=== PATIENT | male | born 1945 | race Two or more races ===

== ENCOUNTER 2019-07-17 11:18 | Outpatient (CLI) | payer OTHER ==
[~2019-07-17 11:18] MED LIST: AMOX1TAB12 PO; AMPICILLIN-SULBA3 GM IV; CAPOTEN100 MG; DOXYCYCLINE HY100 M2 PO; HUMULIN N100 UNIT/2 SUBCUTANEO; HYZAAR 100-12.1 EACH PO; INTESTINEX680 MG PO; METFORMIN HCL500 MG; METRONIDAZOLE500 MG PO; OMEPRAZOLE20 M1 PO; PIPERACIL-TA3.375 GM IV; VANCOMYCIN HCL1 GM IV
== END 2019-07-20 15:17 | disposition home or self-care (01) ==
LOC: RAD 11:18
DX: E10.621 Type 1 diabetes mellitus with foot ulcer (principal); M86.171 Other acute osteomyelitis, right ankle and foot

== ENCOUNTER 2019-09-11 11:46 | Outpatient (CLI) | payer OTHER | END 2019-09-11 11:47 | disposition home or self-care (01) | LOC: RAD 11:46 | DX: M86.171 Other acute osteomyelitis, right ankle and foot (principal); E10.621 Type 1 diabetes mellitus with foot ulcer ==

== ENCOUNTER 2019-09-18 12:24 | Inpatient (IN) | payer OTHER ==
[~2019-09-18] VITALS: Ht 180.3 cm; Wt 93.4 kg
== END 2019-09-27 19:25 | disposition home health service (06) | DRG 256 ==
LOC: ER 12:24 → MEDJ 19:26
PROVIDERS: Specialist; ADMIT Internal Medicine
PROC: 0JBQ0ZZ Excision of Right Foot Subcutaneous Tissue and Fascia, Open Approach (ICD-10-PCS; 2019-09-19)
PROC: BQ3PZZZ Magnetic Resonance Imaging (MRI) of Right Toe(s) (ICD-10-PCS; 2019-09-19)
PROC: 0Y6R0Z3 Detachment at Right 2nd Toe, Low, Open Approach (ICD-10-PCS; 2019-09-21)
PROC: 0Y6P0Z3 Detachment at Right 1st Toe, Low, Open Approach (ICD-10-PCS; principal; 2019-09-21 08:30)
DX: E11.52 Type 2 diabetes mellitus with diabetic peripheral angiopathy with gangrene (principal); I96 Gangrene, not elsewhere classified; L97.414 Non-pressure chronic ulcer of right heel and midfoot with necrosis of bone; M86.171 Other acute osteomyelitis, right ankle and foot; I10 Essential (primary) hypertension; E11.65 Type 2 diabetes mellitus with hyperglycemia; E11.621 Type 2 diabetes mellitus with foot ulcer; B96.89 Other specified bacterial agents as the cause of diseases classified elsewhere; B95.61 Methicillin susceptible Staphylococcus aureus infection as the cause of diseases classified elsewhere; B96.5 Pseudomonas (aeruginosa) (mallei) (pseudomallei) as the cause of diseases classified elsewhere; B96.29 Other Escherichia coli [E. coli] as the cause of diseases classified elsewhere; B95.1 Streptococcus, group B, as the cause of diseases classified elsewhere; Z79.4 Long term (current) use of insulin
CPT/HCPCS: 73725

== ENCOUNTER → 2019-10-23 | Outpatient (CLI) | payer OTHER | END | disposition home or self-care (01) | LOC: WOUND MED 09:00 | DX: E10.621 Type 1 diabetes mellitus with foot ulcer (principal); L97.512 Non-pressure chronic ulcer of other part of right foot with fat layer exposed | CPT/HCPCS: G0463; A4554; A4930; A6216 ==

== ENCOUNTER 2021-08-07 10:14 | Outpatient (CLI) | payer OTHER | END 2021-08-07 10:15 | disposition home or self-care (01) | LOC: RAD 10:14 | PROVIDERS: ATTEND Specialist | DX: M86.8X7 Other osteomyelitis, ankle and foot (principal); L03.115 Cellulitis of right lower limb; E10.65 Type 1 diabetes mellitus with hyperglycemia ==

== ENCOUNTER 2022-01-02 08:49 | Inpatient (IN) | payer OTHER ==
[~2022-01-02] VITALS: Ht 152.4 cm; Wt 102.1 kg
[2022-01-02] MEDS ORDERED: HUMULIN R100 UNIT/1 SUBCUTANEO (09:13)
--- NOTE | 2022-01-02 09:13 | NUR ---
SE RECIBE PACIENTE ALERTA, ORIENTADO X 3 ESFERAS REFIERE TENER INFECCION AE AREA DE AMOUTACION DEL PIES DERECHO. DUNIA REFERIDO DE DR.LOPEZ KESSLER PARA ADMISION. SE ESTIMAN S/V SE UBICA EN AREA DE OBSERVACION.
--- NOTE | 2022-01-02 10:09 | NUR ---
SE LE ORIENTA A PTE SOBRE TRATAMIENTO A SEGUIR, EL REFIERE ENTENDER. SE LE COLECTA MUESTRAS, SE CANALIZA Y SE ADMINISTRA MEDICAMENTO MARCOS ORDEN MEDICA UTILIZANDO MEDIDAS ASEPTICAS. PENDIENTE U/A
--- NOTE | 2022-01-02 17:04 | NUR ---
SE RECIBE PTE ALERTA Y ORIENTADO X3 EN LIDYA CON BARANDAS ELEVADAS. PTE CANALIZADO AREA ISIDRA DE EDEMA Y DE ENROJECIMIENTO. PTE EN ESPERA CONSULTA CON .
== END 2022-01-15 16:05 | disposition home or self-care (01) | DRG 300 ==
LOC: ER 08:49 → MEDI 18:40
PROVIDERS: ADMIT Internal Medicine; ATTEND Internal Medicine
PROC: B44FZZZ Ultrasonography of Right Lower Extremity Arteries (ICD-10-PCS; principal; 2022-01-05)
PROC: 0JBQ3ZZ Excision of Right Foot Subcutaneous Tissue and Fascia, Percutaneous Approach (ICD-10-PCS; 2022-01-07)
DX: E11.52 Type 2 diabetes mellitus with diabetic peripheral angiopathy with gangrene (principal); I96 Gangrene, not elsewhere classified; M86.8X7 Other osteomyelitis, ankle and foot; B96.29 Other Escherichia coli [E. coli] as the cause of diseases classified elsewhere; B96.89 Other specified bacterial agents as the cause of diseases classified elsewhere; B95.61 Methicillin susceptible Staphylococcus aureus infection as the cause of diseases classified elsewhere; L08.89 Other specified local infections of the skin and subcutaneous tissue; L97.519 Non-pressure chronic ulcer of other part of right foot with unspecified severity; E11.621 Type 2 diabetes mellitus with foot ulcer; I10 Essential (primary) hypertension; Z79.4 Long term (current) use of insulin; Z20.822 Contact with and (suspected) exposure to COVID-19

== ENCOUNTER 2023-07-09 13:55 | Inpatient (IN) | payer OTHER ==
[~2023-07-09] VITALS: Ht 180.3 cm; Wt 94.3 kg
[~2023-07-09 13:55] MED LIST changes: +HUMULIN R100 UNIT/1 SUBCUTANEO
[2023-07-09 16:46] LABS: HEMATOCRIT 31.2 % (39.0-48.0); MEAN CELL VOLUME 72.6 fL (80.0-100.00); MEAN CORPUSCULAR HGB CONC 31.8 g/dl (32.0-36.0); PLATELET COUNT 619 K/uL (150-450)
[2023-07-09 16:51] LABS: ERYTHROCYTE SEDIMENTATION RATE 72 mm/hr; HEMOGLOBIN 9.9 g/dL (13-16.00)
[2023-07-09 17:00] LABS: INR 1.01; PARTIAL THROMBOPLASTIN TIME 26.8 SECONDS (22.0-34.0); PROTHROMBIN TIME 10.6 SECONDS (9.0-11.5)
[2023-07-09 17:21] LABS: ALBUMIN 3.2 gm/dL (3.4-5.0); BILIRUBIN TOTAL 0.4 mg/dL (0.3-1.2); CALCIUM 9.2 mg/dL (8.5-10.1); CREATININE SERUM 1.21 mg/dL (0.70-1.30); GFR 58.46; GLOBULINA 5.6 G/DL (2.4-3.5); POTASSIUM 4.38 mEq/L (3.5-5.1); TOTAL PROTEIN 8.8 gm/dL (6.4-8.2)
[2023-07-09 17:22] LABS: C-REACTIVE PROTEIN 2.75 MG/DL (0.00-0.29)
[2023-07-09 17:46] LABS: URINE APPEARANCE Clear; URINE BILIRRUBIN Negative (NEGATIVE); URINE BLOOD Negative; URINE COLOR Yellow; URINE GLUCOSE Negative (NEGATIVE); URINE LEUKOCYTE Negative; URINE NITRATE Negative
[2023-07-09 17:50] LABS: URINE BACTERIA 18.8 uL (0.0-1933); URINE EPITHELIAL CELLS 2.1 uL (0.0-38.8); URINE RBC 2.4 uL (0.0-20.8)
[2023-07-09 17:51] LABS: URINE PROTEIN 300 (NEGATIVE)
[2023-07-10 10:17] LABS: ALBUMIN 3.2 gm/dL (3.4-5.0); BILIRUBIN TOTAL 0.74 mg/dL (0.3-1.2); BILIRUBIN,CONJUGATED 0.25 mg/dL (0.0-0.2); BILIRUBIN,UNCONJUGATED 0.49 mg/dL (0.0-0.6); CALCIUM 9.1 mg/dL (8.5-10.1); CHOL HDL RATIO 2.4 (0-5.0); CREATININE SERUM 1.11 mg/dL (0.70-1.30); GFR 64.58; GLOBULINA 5.4 G/DL (2.4-3.5); POTASSIUM 4.56 mEq/L (3.5-5.1); TOTAL PROTEIN 8.6 gm/dL (6.4-8.2)
[2023-07-10 10:21] LABS: HEMATOCRIT 31.4 % (39.0-48.0); HEMOGLOBIN 10.2 g/dL (13-16.00); MEAN CORPUSCULAR HGB CONC 32.4 g/dl (32.0-36.0); PLATELET COUNT 556 K/uL (150-450); RED BLOOD COUNT 4.24 M/uL (4.00-6.00); RED CELL DISTRIBUTION WIDTH 15.8 % (11.5-14.5)
[2023-07-10 11:42] LABS: PH,URINE 6.5 (5.0-8.0); URINE APPEARANCE Clear; URINE BILIRRUBIN Negative (NEGATIVE); URINE BLOOD Negative; URINE COLOR Yellow; URINE GLUCOSE Negative (NEGATIVE); URINE LEUKOCYTE Negative; URINE NITRATE Negative; URINE UROBILINOGEN 0.2 E.U./dl
[2023-07-10 11:44] LABS: URINE BACTERIA 420.8 uL (0.0-1933); URINE RBC 3.7 uL (0.0-20.8)
[2023-07-10 11:45] LABS: URINE PROTEIN 100 (NEGATIVE)
[2023-07-12] MEDS ORDERED: SIMVASTATIN20 MG (13:31)
[2023-07-12] MEDS ORDERED: ST. JOSEPH ASPI81 M2 (13:31)
[2023-07-12] MEDS ORDERED: A/F PAIN RELIE500 MG (13:31)
[2023-07-12] MEDS ORDERED: AMLODIPINE BESY10 MG (13:32)
[2023-07-12] MEDS ORDERED: METFORMIN HCL1000 M3 (13:32)
[2023-07-12] MEDS ORDERED: OMEPRAZOLE20 MG (13:32)
[2023-07-12] MEDS ORDERED: LISINOPRIL40 MG (13:32)
[2023-07-13 08:07] LABS: HEMATOCRIT 30.5 % (39.0-48.0); HEMOGLOBIN 9.9 g/dL (13-16.00); MEAN CELL VOLUME 73.9 fL (80.0-100.00); MEAN CORPUSCULAR HEMOGLOBIN 23.9 pg (27.00-32.0); MEAN CORPUSCULAR HGB CONC 32.4 g/dl (32.0-36.0); PLATELET COUNT 609 K/uL (150-450); RED BLOOD COUNT 4.13 M/uL (4.00-6.00); RED CELL DISTRIBUTION WIDTH 15.3 % (11.5-14.5)
[2023-07-13 08:14] LABS: ERYTHROCYTE SEDIMENTATION RATE 90 mm/hr
[2023-07-13 08:33] LABS: ALBUMIN 2.9 gm/dL (3.4-5.0); BILIRUBIN TOTAL 0.43 mg/dL (0.3-1.2); C-REACTIVE PROTEIN 1.65 MG/DL (0.00-0.29); CALCIUM 8.9 mg/dL (8.5-10.1); CREATININE SERUM 1.35 mg/dL (0.70-1.30); GFR 51.52; PHOSPHOROUS 3.2 mg/dL (2.5-4.9); POTASSIUM 4.79 mEq/L (3.5-5.1); TOTAL PROTEIN 7.9 gm/dL (6.4-8.2)
[2023-07-17 07:14] LABS: ALBUMIN 2.8 gm/dL (3.4-5.0); BILIRUBIN TOTAL 0.33 mg/dL (0.3-1.2); CALCIUM 9.1 mg/dL (8.5-10.1); CREATININE SERUM 1.23 mg/dL (0.70-1.30); GFR 57.36; GLOBULINA 4.8 G/DL (2.4-3.5); POTASSIUM 4.38 mEq/L (3.5-5.1); TOTAL PROTEIN 7.6 gm/dL (6.4-8.2)
[2023-07-17 07:22] LABS: HEMATOCRIT 31.4 % (39.0-48.0); HEMOGLOBIN 10.3 g/dL (13-16.00); MEAN CELL VOLUME 72.6 fL (80.0-100.00); MEAN CORPUSCULAR HEMOGLOBIN 23.9 pg (27.00-32.0); MEAN CORPUSCULAR HGB CONC 32.9 g/dl (32.0-36.0); PLATELET COUNT 510 K/uL (150-450); RED BLOOD COUNT 4.32 M/uL (4.00-6.00)
[2023-07-21 07:07] LABS: HEMATOCRIT 32.2 % (39.0-48.0); HEMOGLOBIN 10.5 g/dL (13-16.00); MEAN CELL VOLUME 75.6 fL (80.0-100.00); MEAN CORPUSCULAR HEMOGLOBIN 24.5 pg (27.00-32.0); MEAN CORPUSCULAR HGB CONC 32.4 g/dl (32.0-36.0); PLATELET COUNT 334 K/uL (150-450); RED BLOOD COUNT 4.26 M/uL (4.00-6.00); RED CELL DISTRIBUTION WIDTH 16.9 % (11.5-14.5)
[2023-07-21 07:18] LABS: ALBUMIN 2.9 gm/dL (3.4-5.0); BILIRUBIN TOTAL 0.62 mg/dL (0.3-1.2); CALCIUM 8.9 mg/dL (8.5-10.1); CREATININE SERUM 1.18 mg/dL (0.70-1.30); GFR 60.18; GLOBULINA 4.4 G/DL (2.4-3.5); POTASSIUM 4.05 mEq/L (3.5-5.1); TOTAL PROTEIN 7.3 gm/dL (6.4-8.2)
[2023-07-22] MEDS ORDERED: NIFEDIPINE ER30 MG PO (14:36)
[2023-07-22] MEDS ORDERED: SIMVASTATIN20 MG PO (14:36)
[2023-07-22] MEDS ORDERED: COZAAR50 MG PO (14:38)
== END 2023-07-22 16:13 | disposition home or self-care (01) | DRG 540 ==
LOC: ER 13:55 → MEDI 22:16 → SURH 22:16
PROVIDERS: General Practice; Internal Medicine; Internal Medicine Infectious Disease; ADMIT Internal Medicine; ATTEND Internal Medicine
PROC: 02HV33Z Insertion of Infusion Device into Superior Vena Cava, Percutaneous Approach (ICD-10-PCS; principal; 2023-07-12)
PROC: 0JBR3ZZ Excision of Left Foot Subcutaneous Tissue and Fascia, Percutaneous Approach (ICD-10-PCS; 2023-07-14)
PROC: 0JBR3ZZ Excision of Left Foot Subcutaneous Tissue and Fascia, Percutaneous Approach (ICD-10-PCS; 2023-07-20)
DX: M86.8X7 Other osteomyelitis, ankle and foot (principal); L97.528 Non-pressure chronic ulcer of other part of left foot with other specified severity; B96.89 Other specified bacterial agents as the cause of diseases classified elsewhere; E11.621 Type 2 diabetes mellitus with foot ulcer; Z79.4 Long term (current) use of insulin; I10 Essential (primary) hypertension; L08.89 Other specified local infections of the skin and subcutaneous tissue; I73.9 Peripheral vascular disease, unspecified; D64.9 Anemia, unspecified